=== PATIENT | female | born 1995 | race Caucasian/White ===

== ENCOUNTER 2023-11-18 17:52 | Emergency (ER) | payer MEDICAID ==
[~2023-11-18] VITALS: Ht 170.2 cm; Wt 96.4 kg
[2023-11-18 19:08] LABS: Alanine Aminotransferase 16 U/L (7-40); Albumin 5.2 g/dL (3.2-4.8); Alkaline Phosphatase 78 U/L (46-116); Anion Gap 10 (5-15); Aspartate Aminotransferase 15 U/L (13-40); Blood Urea Nitrogen 16 mg/dL (9-23); Calcium 10.5 mg/dL (8.7-10.4); Carbon Dioxide 21 mmol/L (20-30); Chloride 103 mmol/L (98-107); Glucose 108 mg/dL (74-106); Lipase 74 U/L (12-53); Potassium 3.6 mmol/L (3.5-5.1); Sodium 134 mmol/L (136-145)
[2023-11-18 19:09] LABS: Bilirubin, Total 0.8 mg/dL (0.2-1.0); Total Protein 8.7 g/dL (5.7-8.2)
[2023-11-18 19:42] LABS: Basophils # (auto) 0.1 10 ^3/uL (0-0.2); Basophils % (auto) 0.4 % (0.0-2.0); Eosinophils # (auto) 0 10 ^3/uL (0-0.8); Eosinophils % (auto) 0.1 % (0.0-7.0); Hematocrit 43.4 % (36.0-46.0); Hemoglobin 14.9 g/dL (12.2-16.2); Lymphocytes # (auto) 3.5 10 ^3/uL (0.4-5.4); Lymphocytes % (auto) 20.6 % (10.0-50.0); Mean Corpuscular Hemoglobin 29.8 pg (28.0-32.0); Mean Corpuscular Hgb Conc. 34.4 g/dL (32.0-36.0); Mean Corpuscular Volume 86.8 fL (80.0-100.0); Monocytes # (auto) 0.9 10 ^3/uL (0-1.3); Monocytes % (auto) 5.6 % (0.0-12.0); Neutrophils # (auto) 12.4 10 ^3/uL (1.6-8.6); Neutrophils % (auto) 73.3 % (37.0-80.0); Nucleated Red Blood Cells % 0.1 %; Red Blood Cells 4.99 10^6/uL (4.0-5.20); Red Cell Distribution Width 12.7 % (11.8-14.3); White Blood Cell 16.9 10^3/uL (4.4-10.8)
[2023-11-18] MEDS: SODIUM CHLORIDE 0.9% 2,000 ML IV ONE (19:53)
[2023-11-18] MEDS: PANTOPRAZOLE 40 MG/10 ML VIAL INJ IV ONE (19:53)
[2023-11-18] MEDS: ONDANSETRON HCL 4 MG/2 ML VIAL IV ONE (19:53)
[2023-11-18] MEDS: DICYCLOMINE HCL (10MG/ML) 2 ML AMPULE IM ONE (20:01)
[2023-11-18 20:15] LABS: Urine Bacteria FEW /hpf (None Seen); Urine Blood Negative /uL (Negative); Urine Clarity Clear (Clear); Urine Color Yellow (Yellow); Urine Mucus FEW (None Seen); Urine Protein, UAD TRACE (Negative); Urine Specific Gravity 1.031 (1.001-1.035); Urine Urobilinogen 4 mg/dL (Negative); Urine WBC 1 /hpf (0 - 5); Urine pH 6.5 (5.0-9.0)
[2023-11-19] MEDS ORDERED: FAMO20TA10 PO (00:48)
[2023-11-19] MEDS ORDERED: HYDR-4902 PO (00:48)
[2023-11-19] MEDS ORDERED: ZOFR4T PO (00:48)
[2023-11-19 00:49] VITALS: TEMP 98.4; O2SAT 97
[2023-11-19] MEDS: ONDANSETRON HCL 4 MG/2 ML VIAL IV ONE (00:49)
[2023-11-19] MEDS: cefTRIAXone 1GM/50ML D5W 50 ML IV ONE (00:49)
[2023-11-19] MEDS: MORPHINE SULFATE 4 MG/ML SYR/VIAL IV ONE (00:50)
[2023-11-19 01:09] VITALS: BP 142/84; PULSE 84; RESP 16
== END 2023-11-19 01:09 | disposition home or self-care (01) ==
LOC: ER 17:52
DX: K80.20 Calculus of gallbladder without cholecystitis without obstruction (principal); N39.0 Urinary tract infection, site not specified
CPT/HCPCS: 36415; 74176; 76705; 80053; 81001; 83690; 85025; 96361; 96365; 96372; 96375; 96376; 99285; C9113; J0500; J0696; J2270; J2405; J7030